=== PATIENT | male | born 1990 | race Caucasian/White ===

== ENCOUNTER 2017-04-07 10:25 | Emergency (ER) | payer SELFPAY ==
[~2017-04-07] VITALS: Ht 177.8 cm; Wt 68.0 kg
--- NOTE | 2017-04-07 11:16 | NUR ---
Patient discharged to home in stable conditon. Written and verbal after care instructions given to patient. Patient verbalizes understanding of instructions. CD copy & official results of the CT scan were given to patient per patient's request.
== END 2017-04-07 11:19 | disposition home or self-care (01) ==
LOC: ER 10:25
DX: F07.81 Postconcussional syndrome (principal); Z88.0 Allergy status to penicillin
CPT/HCPCS: 70450; A4663